=== PATIENT | male | born 1960 | race Hispanic/Latino ===

== ENCOUNTER 2022-08-08 11:41 | Inpatient (IN) | payer BC ==
[~2022-08-08] VITALS: Ht 188 cm; Wt 99.5 kg
[2022-08-08 12:17] LABS: BASOPHILS % (AUTO) 0.2 % (0.0-5.0); EOSINOPHILS % (AUTO) 0.2 % (0.0-8.0); HEMATOCRIT 53.7 % (42-54); LYMPHOCYTES % (AUTO) 8.4 % (21.0-51.0); MEAN CORPUSCULAR HEMOGLOBIN 29.2 pg (27.0-33.0); MEAN CORPUSCULAR HGB CONC 33.3 g/dL (32.0-36.0); MEAN CORPUSCULAR VOLUME 87.6 fL (79-99); MONOCYTES % (AUTO) 10.6 % (3.0-13.0); NEUTROPHILS % (AUTO) 80.4 % (40.0-77.0); PLATELET COUNT (AUTO) 356 K/uL (130-400); RED BLOOD CELL COUNT(AUTO) 6.13 MIL/uL (4.50-6.20); RED CELL DISTRIBUTION WIDTH 13.8 % (11.0-15.5); WHITE BLOOD COUNT (AUTO) 13.2 K/uL (4.8-10.8)
[2022-08-08 12:40] LABS: CREATININE 4.1 mg/dL (0.5-1.5); POTASSIUM 3.7 mmol/L (3.5-5.1)
[2022-08-08 12:45] LABS: ALBUMIN 4.2 g/dL (3.5-5.0); TOTAL PROTEIN, SERUM 9.2 g/dL (6.0-8.3)
[2022-08-08] MEDS ORDERED: LEVOFLOXACIN 750 MG/D5W 150ML BAG IVPB ONE (13:00)
[2022-08-08] MEDS ORDERED: 0.9%NACL 1000ML 1,000 ML IV ONE (13:00)
[2022-08-08] MEDS ORDERED: ONDANSETRON 4MG INJ IVP ONE (13:00)
[2022-08-08 14:43] LABS: CREATININE 4.1 mg/dL (0.5-1.5); POTASSIUM 3.3 mmol/L (3.5-5.1)
[2022-08-08] MEDS: 0.9%NACL 1000ML 1,000 ML IV SCH (15:56)
[2022-08-08] MEDS ORDERED: IPRATROPIUM 0.5 MG/2.5 ML INH IH PRN (16:00)
[2022-08-08] MEDS ORDERED: ACETAMINOPHEN 500 MG TABLET PO PRN (16:00)
[2022-08-08] MEDS ORDERED: ONDANSETRON 4MG INJ IVP PRN (16:00)
[2022-08-08] MEDS ORDERED: METRONIDAZOLE 500MG/100ML BAG 100 ML IVPB SCH (16:00)
[2022-08-08] MEDS: Vitamin B Complex/Vit C/Folic Acid PO SCH (16:29)
[2022-08-08 17:07] LABS: PROTHROMBIN TIME 10.9 SEC (9.6-11.6)
[2022-08-08 17:08] LABS: PARTIAL THROMBOPLASTIN TIME 30.7 SEC (26.3-35.5)
[2022-08-08 17:29] LABS: CRP QUANTITATIVE 108.8 mg/L (0.00-9.0); MAGNESIUM 2.6 mg/dL (1.80-2.40); THYROID STIMULATING HORMONE 1.06 uIU/mL (0.36-3.74); URIC ACID 8.4 mg/dL (2.6-7.2)
[2022-08-08 17:29] LABS: HEMOGLOBIN A1C 5.4 % (4.0-6.0)
[2022-08-08] MEDS: TAMSULOSIN HCL 0.4 MG CAP.ER.24H PO SCH (20:59)
[2022-08-08 21:15] VITALS: BP 134/78
[2022-08-08 21:25] LABS: CREATININE 3.2 mg/dL (0.5-1.5); POTASSIUM 3.4 mmol/L (3.5-5.1)
[2022-08-08 21:25] LABS: APPEARANCE,URINE CLOUDY (CLEAR); BILIRUBIN,URINE NEGATIVE (NEGATIVE); COLOR,URINE YELLOW (YELLOW); GLUCOSE, URINE (UA) NEGATIVE (NEGATIVE); KETONES,URINE NEGATIVE (NEGATIVE); LEUKOCYTE ESTERASE ,URINE NEGATIVE Leu/uL (NEGATIVE); NITRATE,URINE NEGATIVE (NEGATIVE); OCCULT BLOOD,URINE SMALL (NEGATIVE); PROTEIN,URINE 70 mg/dL (NEGATIVE); UROBILINOGEN,URINE 0.2 mg/dL (0.2-1.0)
[2022-08-08 21:27] LABS: CREATININE,URINE RANDOM 164 mg/dL (30-135); SODIUM,URINE RANDOM 34 mmol/l (40-220)
[2022-08-08 21:32] LABS: MUCUS,URINE FEW LPF (None Seen); SQUAMOUS EPITHELIAL CELL,UR RARE /HPF (0-2)
[2022-08-08] MEDS ORDERED: HYDRALAZINE 20MG/ML VIAL IV PRN (22:00)
[2022-08-08] MEDS ORDERED: FEBU40TA3 PO (22:34)
[2022-08-08] MEDS ORDERED: OLME40TA18 PO (22:34)
[2022-08-08] MEDS ORDERED: ROSU5TAB12 PO (22:34)
[2022-08-08 23:00] VITALS: BP 107/57
[2022-08-09] MEDS: 0.9%NACL 1000ML 1,000 ML IV SCH ×2 (01:30→18:08)
[2022-08-09 05:00] VITALS: BP 98/60
[2022-08-09 05:37] LABS: BASOPHILS % (AUTO) 0.3 % (0.0-5.0); EOSINOPHILS % (AUTO) 0.8 % (0.0-8.0); HEMATOCRIT 47.6 % (42-54); LYMPHOCYTES % (AUTO) 15.7 % (21.0-51.0); MEAN CORPUSCULAR HEMOGLOBIN 29.2 pg (27.0-33.0); MEAN CORPUSCULAR HGB CONC 32.6 g/dL (32.0-36.0); MEAN CORPUSCULAR VOLUME 89.8 fL (79-99); MONOCYTES % (AUTO) 11.3 % (3.0-13.0); NEUTROPHILS % (AUTO) 71.5 % (40.0-77.0); PLATELET COUNT (AUTO) 257 K/uL (130-400); RED CELL DISTRIBUTION WIDTH 13.6 % (11.0-15.5); WHITE BLOOD COUNT (AUTO) 9.8 K/uL (4.8-10.8)
[2022-08-09 05:49] LABS: ALBUMIN 3.1 g/dL (3.5-5.0); CREATININE 3.2 mg/dL (0.5-1.5); MAGNESIUM 2.2 mg/dL (1.80-2.40); PHOSPHORUS 3.5 mg/dL (2.5-4.9); URIC ACID 8.4 mg/dL (2.6-7.2)
[2022-08-09 08:00] VITALS: BP 96/62
[2022-08-09 11:58] VITALS: BP 104/65
[2022-08-09] MEDS ORDERED: PHARMACY COMMUNICATION MISC SCH (13:30)
[2022-08-09 16:00] VITALS: BP 135/71
[2022-08-09] MEDS: Vitamin B Complex/Vit C/Folic Acid PO SCH (18:07)
[2022-08-09] MEDS: TAMSULOSIN HCL 0.4 MG CAP.ER.24H PO SCH (19:49)
[2022-08-09] MEDS: FAMOTIDINE 20MG TAB PO SCH (19:50)
[2022-08-09 19:54] VITALS: BP 128/80
[2022-08-09 23:34] VITALS: BP 108/71
[2022-08-10] MEDS: 0.9%NACL 1000ML 1,000 ML IV SCH (01:18)
[2022-08-10 04:37] VITALS: BP 100/64
[2022-08-10 05:26] LABS: HEMATOCRIT 43.1 % (42-54); MEAN CORPUSCULAR HEMOGLOBIN 28.8 pg (27.0-33.0); MEAN CORPUSCULAR HGB CONC 32.3 g/dL (32.0-36.0); MEAN CORPUSCULAR VOLUME 89.2 fL (79-99); RED BLOOD CELL COUNT(AUTO) 4.83 MIL/uL (4.50-6.20); RED CELL DISTRIBUTION WIDTH 13.5 % (11.0-15.5); WHITE BLOOD COUNT (AUTO) 6.1 K/uL (4.8-10.8)
[2022-08-10 05:44] LABS: CREATININE 1.4 mg/dL (0.5-1.5); MAGNESIUM 1.9 mg/dL (1.80-2.40); PHOSPHORUS 2.2 mg/dL (2.5-4.9); POTASSIUM 3.9 mmol/L (3.5-5.1)
[2022-08-10 08:00] VITALS: BP 112/76
[2022-08-10] MEDS: FAMOTIDINE 20MG TAB PO SCH (09:11)
== END 2022-08-10 12:00 | disposition home or self-care (01) | DRG 683 ==
LOC: EDH 11:41 → EDHIP 15:20 → 4DH 20:28
PROVIDERS: ADMIT Internal Medicine; ATTEND Internal Medicine
DX: N17.9 Acute kidney failure, unspecified (principal); A09 Infectious gastroenteritis and colitis, unspecified; E87.1 Hypo-osmolality and hyponatremia; Z20.822 Contact with and (suspected) exposure to COVID-19; E86.0 Dehydration; E86.1 Hypovolemia; D75.1 Secondary polycythemia; E87.6 Hypokalemia; M10.9 Gout, unspecified; E78.00 Pure hypercholesterolemia, unspecified; N40.0 Benign prostatic hyperplasia without lower urinary tract symptoms; I10 Essential (primary) hypertension; Z79.899 Other long term (current) drug therapy; Z90.49 Acquired absence of other specified parts of digestive tract
CPT/HCPCS: 36415; 71045; 74176; 76770; 80048; 80053; 80061; 81001; 82550; 82570; 83036; 83605; 83735; 84100; 84145; 84300; 84443; 84540; 84550; 85025; 85027; 85610; 85651; 85730; 86140; 87040; 87507; 87635; 87804; 93005; G0378; J1956; J2405; J7030